=== PATIENT | female | born 1985 | race Caucasian/White ===

== ENCOUNTER 2016-07-15 10:51 | Emergency (ER) | payer MEDICAID | END 2016-07-15 11:56 | disposition home or self-care (01) | LOC: D.ER 10:51 | DX: J01.90 Acute sinusitis, unspecified (principal); J20.9 Acute bronchitis, unspecified ==

== ENCOUNTER → 2016-08-18 11:13 | Outpatient (CLI) | payer MEDICAID | END | disposition home or self-care (01) | LOC: D.RAD 10:15 | DX: O26.899 Other specified pregnancy related conditions, unspecified trimester (principal); R10.2 Pelvic and perineal pain ==